=== PATIENT | female | born 1985 | race Caucasian/White ===

== ENCOUNTER → 2020-04-07 | Outpatient (CLI) | payer OTHER ==
[2020-04-07 16:31] LABS: ABSOLUTE NEUTROPHILS 8.2 thou/uL (1.4-8.2); BASOPHILS 0.6 % (0.0-2.0); EOSINOPHILS 1.5 % (0.0-3.0); HEMATOCRIT 41.4 % (37.0-47.0); LYMPHOCYTES 20.3 % (24.0-44.0); MCH 31.8 pg (26.0-34.0); MCHC 33.9 g/dL (28.0-37.0); MCV 93.7 fL (80.0-100.0); MONOCYTES 4.5 % (1.0-8.0); PLATELET COUNT 338 thou/uL (150-400); POLYS 73.1 % (36.0-66.0); RBC 4.41 mil/uL (4.20-5.00); RDW 12.8 % (10.5-14.5); WBC 11.2 thou/uL (4.0-11.0)
[2020-04-07 16:48] LABS: ALBUMIN 4.3 g/dL (3.4-5.0); ANION GAP 12 mmol/L (7-16); BUN 7 mg/dL (7-18); CALCIUM 8.7 mg/dL (8.5-10.1); CHLORIDE 103 mmol/L (98-107); CHOLESTEROL 176 mg/dL (<200); CO2 26 mmol/L (21-32); CREATININE 0.7 mg/dL (0.6-1.0); GLUCOSE 79 mg/dL (74-106); HDL CHOLESTEROL 47 mg/dL (>40); LDL CHOLESTEROL 104 mg/dL (<100); POTASSIUM 3.8 mmol/L (3.5-5.1); SGOT 14 U/L (15-37); SGPT 18 U/L (30-65); SODIUM 141 mmol/L (136-145); TC:HDL 3.7 Ratio (Not establshd); TOTAL BILIRUBIN 0.4 mg/dL (0.2-1.0); TOTAL PROTEIN 7.5 g/dL (6.4-8.2); TRIGLYCERIDE 126 mg/dL (<150); VLDL 25 mg/dL (<40)
== END ==
LOC: LAB 06:34
PROVIDERS: ATTEND Family Medicine
DX: E04.9 Nontoxic goiter, unspecified (principal)

== ENCOUNTER → 2020-05-12 | Outpatient (CLI) | payer OTHER | LOC: ULTRA 07:37 | PROVIDERS: ATTEND Family Medicine | DX: E01.0 Iodine-deficiency related diffuse (endemic) goiter (principal) ==

== ENCOUNTER 2021-02-04 11:18 | Emergency (ER) | payer OTHER ==
[~2021-02-04] VITALS: Ht 165.1 cm; Wt 77.6 kg
[2021-02-04 11:19] VITALS: BP 128/77
== END 2021-02-04 11:50 | disposition home or self-care (01) ==
LOC: ER 11:18
PROVIDERS: Nurse Practitioner Family
DX: Z20.822 Contact with and (suspected) exposure to COVID-19 (principal); Z91.040 Latex allergy status; Z91.018 Allergy to other foods

== ENCOUNTER → 2021-02-11 | Outpatient (CLI) | payer OTHER | LOC: LAB 14:46 | PROVIDERS: ATTEND Hospitalist | DX: Z20.822 Contact with and (suspected) exposure to COVID-19 (principal) ==

== ENCOUNTER 2021-05-23 15:18 | Emergency (ER) | payer OTHER ==
[~2021-05-23] VITALS: Ht 165.1 cm; Wt 79.4 kg
[2021-05-23 16:56] LABS: URINE BILIRUBIN NEGATIVE (Negative); URINE BLOOD TRACE (Negative); URINE CLARITY CLEAR; URINE COLOR YELLOW; URINE GLUCOSE-RANDOM* NEGATIVE (Negative); URINE KETONES NEGATIVE (Negative); URINE LEUKOCYTES-REFLEX NEGATIVE (Negative); URINE NITRITE-REFLEX NEGATIVE (Negative); URINE PROTEIN (DIPSTICK) NEGATIVE (Negative); URINE SPECIFIC GRAVITY 1.015 (1.005-1.035); URINE UROBILINOGEN 0.2 E.U./dl (0.2-1.0)
[2021-05-23 17:12] LABS: ABSOLUTE NEUTROPHILS 11.9 thou/uL (1.4-8.2); BASOPHILS 0.2 % (0.0-2.0); EOSINOPHILS 0.5 % (0.0-3.0); HEMATOCRIT 41.9 % (37.0-47.0); HEMOGLOBIN 14.5 gm/dL (12.0-15.0); LYMPHOCYTES 15.6 % (24.0-44.0); MCHC 34.6 g/dL (28.0-37.0); MCV 92.3 fL (80.0-100.0); MONOCYTES 4.8 % (1.0-8.0); PLATELET COUNT 325 thou/uL (150-400); POLYS 78.9 % (36.0-66.0); RBC 4.54 mil/uL (4.20-5.00); RDW 12.4 % (10.5-14.5)
[2021-05-23 17:18] LABS: CALCIUM 8.7 mg/dL (8.5-10.1); CREATININE 0.6 mg/dL (0.6-1.0); POTASSIUM 4.2 mmol/L (3.5-5.1)
[2021-05-23 17:25] LABS: TOTAL BILIRUBIN 0.4 mg/dL (0.2-1.0); TOTAL PROTEIN 7.1 g/dL (6.4-8.2)
[2021-05-23] MEDS ORDERED: METRONIDAZOLE500 M4 PO (19:03)
[2021-05-23] MEDS ORDERED: CIPROFLOXACIN500 M1 PO (19:03)
[2021-05-23 19:22] VITALS: BP 115/63
== END 2021-05-23 19:23 | disposition home or self-care (01) ==
LOC: ER 15:18
PROVIDERS: Emergency Medicine
DX: K52.9 Noninfective gastroenteritis and colitis, unspecified (principal); Z20.822 Contact with and (suspected) exposure to COVID-19; D72.829 Elevated white blood cell count, unspecified; R10.31 Right lower quadrant pain; Z91.040 Latex allergy status

== ENCOUNTER → 2021-06-21 | Outpatient (CLI) | payer OTHER ==
[~2021-06-21] MED LIST: CIPROFLOXACIN500 M1 PO; METRONIDAZOLE500 M4 PO
== END ==
LOC: LAB 15:16
PROVIDERS: ATTEND Family Medicine
DX: E04.9 Nontoxic goiter, unspecified (principal)

== ENCOUNTER 2021-07-14 08:44 | Emergency (ER) | payer OTHER ==
[~2021-07-14] VITALS: Ht 165.1 cm; Wt 79.4 kg
[2021-07-14 09:31] LABS: BASOPHILS 0.2 % (0.0-2.0); EOSINOPHILS 0.2 % (0.0-3.0); LYMPHOCYTES 7.1 % (24.0-44.0); MCV 91.2 fL (80.0-100.0); MONOCYTES 1.9 % (1.0-8.0); PLATELET COUNT 313 thou/uL (150-400); POLYS 90.6 % (36.0-66.0); RBC 4.83 mil/uL (4.20-5.00); RDW 12.4 % (10.5-14.5); WBC 14.4 thou/uL (4.0-11.0)
[2021-07-14 10:06] LABS: CALCIUM 9.1 mg/dL (8.5-10.1); CREATININE 0.6 mg/dL (0.6-1.0); POTASSIUM 4.3 mmol/L (3.5-5.1)
[2021-07-14 10:12] LABS: ALBUMIN 4.2 g/dL (3.4-5.0); TOTAL BILIRUBIN 0.5 mg/dL (0.2-1.0); TOTAL PROTEIN 7.7 g/dL (6.4-8.2)
[2021-07-14] MEDS ORDERED: NAPROSYN500 MG PO (10:37)
[2021-07-14 11:05] VITALS: BP 121/71
[2021-07-15] MEDS ORDERED: ZOFRAN ODT4 MG PO (15:30)
[2021-07-15] MEDS ORDERED: BENTYL 10 MG CA10 MG PO (15:30)
[2021-07-15] MEDS ORDERED: CEPHALEXIN500 MG PO (16:08)
== END 2021-07-14 11:10 | disposition home or self-care (01) ==
LOC: ER 08:44
PROVIDERS: Emergency Medicine
DX: N83.201 Unspecified ovarian cyst, right side (principal); R10.31 Right lower quadrant pain; Z91.040 Latex allergy status

== ENCOUNTER 2021-07-15 11:14 | Emergency (ER) | payer OTHER ==
[~2021-07-15] VITALS: Ht 165.1 cm; Wt 79.4 kg
[~2021-07-15 11:14] MED LIST changes: +NAPROSYN500 MG PO
[2021-07-15 13:33] LABS: ABSOLUTE NEUTROPHILS 9.7 thou/uL (1.4-8.2); BASOPHILS 0.6 % (0.0-2.0); EOSINOPHILS 0.2 % (0.0-3.0); HEMATOCRIT 44.9 % (37.0-47.0); HEMOGLOBIN 14.8 gm/dL (12.0-15.0); LYMPHOCYTES 18.3 % (24.0-44.0); MCH 31.1 pg (26.0-34.0); MCV 94.1 fL (80.0-100.0); MONOCYTES 2.8 % (1.0-8.0); PLATELET COUNT 310 thou/uL (150-400); POLYS 78.1 % (36.0-66.0); RBC 4.77 mil/uL (4.20-5.00); RDW 12.6 % (10.5-14.5); WBC 12.4 thou/uL (4.0-11.0)
[2021-07-15 13:39] LABS: CALCIUM 9.3 mg/dL (8.5-10.1); CREATININE 0.6 mg/dL (0.6-1.0); POTASSIUM 3.9 mmol/L (3.5-5.1)
[2021-07-15 13:45] LABS: ALBUMIN 4.5 g/dL (3.4-5.0); TOTAL BILIRUBIN 0.6 mg/dL (0.2-1.0); TOTAL PROTEIN 7.6 g/dL (6.4-8.2)
[2021-07-15] MEDS ORDERED: ZOFRAN ODT4 MG PO (15:30)
[2021-07-15] MEDS ORDERED: BENTYL 10 MG CA10 MG PO (15:30)
[2021-07-15 15:35] LABS: URINE BILIRUBIN NEGATIVE (Negative); URINE BLOOD 1+ (Negative); URINE CLARITY CLEAR; URINE COLOR YELLOW; URINE GLUCOSE-RANDOM* NEGATIVE (Negative); URINE KETONES 2+ (Negative); URINE LEUKOCYTES-REFLEX NEGATIVE (Negative); URINE NITRITE-REFLEX NEGATIVE (Negative); URINE PROTEIN (DIPSTICK) NEGATIVE (Negative); URINE SPECIFIC GRAVITY 1.025 (1.005-1.035); URINE UROBILINOGEN 0.2 E.U./dl (0.2-1.0)
[2021-07-15 15:46] LABS: SQUAMOUS 4-10 Moderate /LPF (0-3); WBC CLUMPS Few (None Seen)
[2021-07-15 15:47] LABS: BACTERIA-REFLEX >30 Many /HPF (None Seen); CASTS None Seen /LPF (None Seen); CRYSTALS None Seen /LPF (None Seen); URINE RBC 3-10 Few /HPF (NONE SEEN); URINE WBC-REFLEX 0-5 Rare /HPF (0-5)
[2021-07-15] MEDS ORDERED: CEPHALEXIN500 MG PO (16:08)
[2021-07-15 16:12] VITALS: BP 125/72
== END 2021-07-15 16:15 | disposition home or self-care (01) ==
LOC: ER 11:14
PROVIDERS: Physician Assistant
DX: N39.0 Urinary tract infection, site not specified (principal); R10.31 Right lower quadrant pain; K21.9 Gastro-esophageal reflux disease without esophagitis; Z91.040 Latex allergy status

== ENCOUNTER → 2021-07-29 | Outpatient (CLI) | payer OTHER ==
[~2021-07-29] MED LIST changes: +BENTYL 10 MG CA10 MG PO; +CEPHALEXIN500 MG PO; +MIRALAX119 GM PO; +SENOKOT8.6 MG PO; +ZOFRAN ODT4 MG PO; +ZYRTEC10 M5 PO
== END ==
LOC: LAB 10:07
PROVIDERS: ATTEND Student in an Organized Health Care Education/Training Program
DX: Z01.812 Encounter for preprocedural laboratory examination (principal); Z20.822 Contact with and (suspected) exposure to COVID-19

== ENCOUNTER → 2021-07-30 | Outpatient (CLI) | payer OTHER ==
[~2021-07-30] VITALS: Ht 165.1 cm; Wt 79.4 kg
--- NOTE | 2021-08-02 14:36 | P ---
[facility] [place] [address] PROCEDURE REPORT Name: RICARDO VALENTE Room #: REG [facility].#: [id number] Admission: 07/30/21 Attend Phys: Chris Wood Discharge: Date of : 83 Report #: [id number] THIS REPORT FOR: cc: Jeffrey Adams MD, Neal A. MD McElhinney, Christian C. MD ~ cc: Jeffrey Adams MD DATE OF SERVICE: 07/30/2021 PROCEDURE PERFORMED: Colonoscopy. HISTORY OF PRESENT ILLNESS: The patient is a 35-year-old female who had an episode of right lower quadrant abdominal pain in May. She was evaluated in the Emergency Room at that time and a CT scan of the abdomen and pelvis was performed on 05/23/2021 that showed mild wall thickening and stranding about the sigmoid colon, likely representing an infectious or inflammatory colitis, otherwise normal. The patient was treated with antibiotics and her symptoms resolved. She then had another episode of right lower quadrant abdominal pain and had a repeat CT scan on 07/14/2021. This one showing mild constipation, previous inflamed sigmoid colon has resolved, trace amount of right-sided pelvic fluid, very small right ovarian follicle likely within normal physiologic limits, normal appendix. Plan is for colonoscopy today. She denies any history of diarrhea or blood in her stools. No family history of colon cancer. She had a cousin with Crohn's disease. DESCRIPTION OF PROCEDURE: The risks and benefits of the procedure were explained to the patient, those risks including but not limited to bleeding, perforation and the risk of sedation. She understood these risks and gave informed consent. Sedation was given using propofol per Anesthesia. Next, a digital rectal exam was initially performed, which was normal. Next, using a standard Olympus colonoscope, the scope was placed in the patient's anus and advanced under direct vision to the cecum. The overall prep was excellent. The cecum and ileocecal valve were normal in appearance. The terminal ileum was intubated and normal in appearance. The ascending, transverse, descending, and sigmoid colon were all normal. The rectal mucosa was normal. On retroflexion, no abnormalities were noted. The scope was then withdrawn and the procedure terminated. The patient tolerated the procedure well. IMPRESSION: Normal colonoscopy. RECOMMENDATIONS: Observe the patient at this point. The patient may have had an infectious type of colitis in May, which is now resolved after antibiotics. Agree with Bentyl on a p.r.n. basis. if recurrent pain. [address] [address] PROCEDURE REPORT Name: RICARDO VALENTE Room #: REG [facility].#: [id number] Admission: 07/30/21 Attend Phys: Chris Wood Discharge: Date of : 83 Report #: [id number] Thank you for allowing me to participate in her care. <ELECTRONICALLY SIGNED> By: Chris Fairchild MD 08/02/21 [id number] Chris Fairchild MD /nt
== END | disposition home or self-care (01) ==
LOC: GI
PROVIDERS: ATTEND Specialist
DX: K59.00 Constipation, unspecified (principal); J45.909 Unspecified asthma, uncomplicated; K21.9 Gastro-esophageal reflux disease without esophagitis; F17.210 Nicotine dependence, cigarettes, uncomplicated; Z98.890 Other specified postprocedural states; Z79.899 Other long term (current) drug therapy; Z91.040 Latex allergy status; Z98.51 Tubal ligation status; Z87.19 Personal history of other diseases of the digestive system
CPT/HCPCS: 62110; 62900

== ENCOUNTER → 2021-08-06 | Outpatient (CLI) | payer OTHER | LOC: LAB 09:30 | PROVIDERS: ATTEND Contractor | DX: R31.29 Other microscopic hematuria (principal) ==